=== PATIENT | male | born 1980 | race African-American/Black ===

== ENCOUNTER 2018-03-20 08:59 | Outpatient (CLI) | payer BC | END 2018-03-20 09:00 | disposition home or self-care (01) | LOC: BICMRI 08:59 | PROVIDERS: ATTEND Orthopaedic Surgery | DX: M25.561 Pain in right knee (principal); S83.231A Complex tear of medial meniscus, current injury, right knee, initial encounter; M25.461 Effusion, right knee ==

== ENCOUNTER 2018-05-20 15:08 | Outpatient (CLI) | payer BC ==
[2018-05-20 15:30] LABS: #Eosinphils 0.1 thou/uL (0.0-0.7); #Lymphocytes 1.9 thou/uL (1.20-3.40); #Monocytes 0.4 thou/uL (0.11-0.59); #Neutrophils 2.6 thou/uL (1.40-6.50); %Basophils 0.6 % (0.0-1.0); %Eosinophils 2.7 % (0.0-10.0); %Lymphocytes 37.8 % (21.0-51.0); %Monocytes 7.1 % (0.0-10.0); %Neutrophils 51.8 % (42.0-75.0); Hemoglobin 14.7 g/dL (14.0-18.0); Mean Corpuscular HGB CONC 32.3 g/dL (32.0-36.0); Mean Corpuscular Hemoglobin 28.3 pg (27.0-31.0); Mean Corpuscular Volume 87.6 fl (80.0-94.0); Mean Platelet Volume 8.4 fL (7.4-10.4); Platelet Count 131 thou/uL (130-400); RBC Distribution Width 10.8 % (11.5-14.5); Red Blood Cell (RBC) Count 5.19 mill/uL (4.70-6.10)
[2018-05-20 15:47] LABS: Anion Gap 13 mmol/L (10-20); BUN (Urea Nitrogen) 16 mg/dL (8.9-20.6); Calc. Creatinine Clearance 0 mL/min (70-130); Calcium 9.2 mg/dL (7.8-10.44); Carbon Dioxide 26 mmol/L (22-29); Chloride 104 mmol/L (98-107); Estimated GFR-MDRD 67; Glucose 91 mg/dL (70-105); Potassium 3.9 mmol/L (3.5-5.1); Sodium 139 mmol/L (136-145)
== END 2018-05-20 15:09 | disposition home or self-care (01) ==
LOC: LABBT 15:08
PROVIDERS: ATTEND Orthopaedic Surgery
DX: Z01.812 Encounter for preprocedural laboratory examination (principal); S83.241A Other tear of medial meniscus, current injury, right knee, initial encounter
CPT/HCPCS: 80048; 85025

== ENCOUNTER 2018-05-23 06:00 | Day surgery (SDC) | payer BC ==
[2018-05-20 15:18] VITALS: BMI 30.5
[2018-05-23] MEDS ORDERED: Levofloxacin 500 mg/D5W 100 ml Premix Bag ONE (06:07)
[2018-05-23] MEDS ORDERED: Vancomycin HCl 1.5 GM in Sodium Chloride 0.9% 250 ML 300 ML IVPB SCH (06:15)
[2018-05-23] MEDS ORDERED: PROPOFOL 20 ML ONE (06:28)
[2018-05-23] MEDS ORDERED: Midazolam HCl 2 mg/2 ml Vial ONE (06:45)
[2018-05-23] MEDS ORDERED: Fentanyl 100 MCG/2 ML VIAL ONE (06:45)
[2018-05-23] MEDS ORDERED: Bupivacaine HCl 0.5%/Epinephrine 1:200,000/PF 30 ml Vial ONE (06:55)
--- NOTE | 2018-05-23 08:38 | OP ---
PREOPERATIVE DIAGNOSIS: Right knee medial meniscus tear. POSTOPERATIVE DIAGNOSIS: Right knee medical meniscus tear. FINDINGS ON SURGERY: Medial meniscus tear, intact anterior cruciate ligament. SURGEON: Jonas De La Garza M.D. CAR AUDIO INSTALLER: None. BLOOD LOSS: Minimal. SPECIMEN: None. DRAINS: None. COMPLICATIONS: None. DESCRIPTION OF PROCEDURE: The patient was taken to the operating where general anesthesia was induce d. She received vancomycin and Levaquin preoperatively. Right leg was prepped and draped in the usu al sterile fashion. Scope was placed in the lateral portal and probe was placed in medial portal. I removed the posterior horn of the medial meniscus. This appeared to be a fairly chronic tear. I pr eleanor the remaining meniscus and confirmed it was stable. There were no chondral defects on the media l or lateral tibia or femur. ACL graft appeared to be intact. There were some grade 3 chondromalaci a patella, which was debrided. The knee was drained. Sterile dressing was applied.
== END 2018-05-23 09:44 | disposition home or self-care (01) ==
LOC: SDC 06:00
PROVIDERS: ATTEND Orthopaedic Surgery
PROC: 0SBC4ZZ Excision of Right Knee Joint, Percutaneous Endoscopic Approach (ICD-10-PCS; principal; 2018-05-23)
DX: S83.241A Other tear of medial meniscus, current injury, right knee, initial encounter (principal); M22.41 Chondromalacia patellae, right knee; Z88.0 Allergy status to penicillin
CPT/HCPCS: G8978-GP-CI; G8979-GP-CI; G8980-GP-CI; J0670; J1956; J2250; J2704; J3010; J3370; J7050